=== PATIENT | male | born 1955 | race African-American/Black ===

== ENCOUNTER 2019-04-14 21:21 | Emergency (ER) | payer MEDICAID, OTHER ==
[~2019-04-14] VITALS: Ht 177.8 cm; Wt 95.0 kg
[~2019-04-14 21:21] MED LIST: AMLO10TA80 PO; BENAZEPRIL; CHOL100044 PO; FURO40TA5 PO; HYDR-4135 PO; LOSA50TA41 PO
[2019-04-14] MEDS ORDERED: SODIUM CHLORIDE 0.9% 1,000 ML IV ONE (22:41)
[2019-04-14] MEDS ORDERED: PROPOFOL 200MG/20ML VIAL IV ONE (22:45)
[2019-04-14] MEDS ORDERED: ONDANSETRON HCL 4MG/2ML INJ IV ONE (22:45)
[2019-04-14] MEDS ORDERED: MORPHINE SULFATE 4 MG/ML CPJ (NOT FOR IM USE) IV ONE (22:45)
[2019-04-14] MEDS ORDERED: MORPHINE SULFATE 2 MG/ML CPJ (NOT FOR IM USE) IV ONE (23:16)
[2019-04-15 04:45] VITALS: BP 152/72
== END 2019-04-15 04:52 | disposition short-term general hospital (02) ==
LOC: ER 21:21
DX: S82.61XA Displaced fracture of lateral malleolus of right fibula, initial encounter for closed fracture (principal); I10 Essential (primary) hypertension; F17.210 Nicotine dependence, cigarettes, uncomplicated; F10.10 Alcohol abuse, uncomplicated; Y90.9 Presence of alcohol in blood, level not specified; V18.0XXA Pedal cycle driver injured in noncollision transport accident in nontraffic accident, initial encounter; Y93.55 Activity, bike riding; Y92.488 Other paved roadways as the place of occurrence of the external cause
CPT/HCPCS: 73590; 73600; 73610; 96374; 96375; 99152; 99285; J2270; J2405; J2704; J7030; Z7610